=== PATIENT | male | born 2005 | race Caucasian/White ===

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

== ENCOUNTER 2024-06-16 12:03 | Emergency (ER) | payer BC, SELFPAY ==
[2024-06-16 12:47] VITALS: BP 132/88; PULSE 91; RESP 17; TEMP 36.6; O2SAT 99; BMI 23.7
--- NOTE | 2024-06-16 12:48 | ED.GENADULT ---
HPI - General Adult General Chief complaint: Headache Stated complaint: Ear pain/Headache/HBP Time Seen by Provider: 06/16/24 18:18 History of Present Illness ED Provider: Kosta HARRIS narrative: The patient is a 19-year-old male who is generally in good health and on no medications. He has been feeling unwell for about 3 weeks. He says that at the end of April he was in [place] and went on a lot of rides. He returned to [place] on May 21. At that time he was feeling fine. The next day on May 22 he had some alcohol. The next day he thought he might be hung over. He did not feel very well. The following day on Sunday evening he felt dizzy and felt like he had to stay in bed. He also felt very anxious. He says that since then, over the intervening 3 weeks, he has continued to feel quite unwell. He has spent a lot of time in bed. He has eaten less than usual. He thinks he has lost at least 10 lb. He has been sleeping poorly. He has been eating poorly. He has had intermittent nausea. He has had a couple of episodes of vomiting. He has had no significant abdominal pain. He has had no fevers or urinary symptoms. He says that his head ?feels weird. ? He says he does not really have a headache. He feels dizzy with head movements. Last week he went to an urgent care clinic but was given no particular diagnosis. Today he felt that his symptoms were worse. He told his father who brought him to the emergency room. He says that he only feels well when he is crying. Related Data Previous Rx's ?Medication ?Instructions ?Recorded ondansetron 4 mg disintegrating 4 mg PO Q6H PRN nausea and 06/16/24 tablet vomiting #10 tabs Allergies Allergy/AdvReac Type Severity Reaction Status Date / Time No Known Allergies Allergy Verified 06/16/24 12:49 Review of Systems Review of Systems: Yes all other systems are reviewed and are negative [facility] Social History Social History Advance Directives: No Advance Directives Information Provided: No Do you have a plan to hurt others: No Plan Physical Exam ED Vital Signs: Vital Signs - 24 hr 06/16/24 12:47 06/16/24 19:18 06/16/24 20:11 Temperature 97.8 F 98.4 F 98.9 F Pulse Rate 91 111 H Respiratory Rate 17 16 Blood Pressure 132/88 125/76 Pulse Oximetry 99 100 Oxygen Delivery Method Room Air Room Air 06/16/24 20:51 Temperature 98.9 F Pulse Rate 0 L Respiratory Rate 18 Blood Pressure 00/00 L Pulse Oximetry 95 Oxygen Delivery Method Room Air BMI result Body Mass Index 23.7 Const Other: The patient is a 19-year-old male who looks as though he is ordinarily slim and healthy. He was awake and alert. His father was sitting next to him on the stretcher and the patient had his arms around his father and was intermittently tearful. He did not seem in obvious pain or respiratory distress. HENMT Other: The face is symmetrical. No facial swelling or obvious abnormality to inspection. Mucous membranes are moist. Posterior pharynx is normal. Tympanic membranes are normal bilaterally. Eyes Other: No nystagmus General: appearance normal, both eyes and all related structures Alignment and Position: alignment normal Eyelids: Yes eyelids normal Conjunctivae: conjunctivae normal Sclerae: sclerae normal Pupils: Equal, round and reactive pupils present EOM: EOMs intact bilaterally Neck Other: No cervical adenopathy, neck is supple. Resp Effort & Inspection: normal respiratory effort Auscultation: clear to auscultation bilaterally Cardio Rate: regular rate Rhythm: regular rhythm Heart sounds: S1 normal heart sound present and S2 normal heart sound present GI Other: Abdomen is soft and nontender, no masses. Skin Other: Skin is dry and unremarkable. No rash. Neuro Other: The patient is awake and alert. He seemed anxious and was intermittently tearful. However he did not seem confused or encephalopathic. Pupils were round equal, extraocular movements were intact, no nystagmus. Face is symmetrical. Speech is clear. He moves his extremities normally and appropriately. Finger-nose is normal. Heel-grimaldo is normal. Gait is normal. He seems neurologically intact. His neck is supple. Cranial nerves: Yes Equal, round and reactive pupils present Extrem Other: No peripheral edema. Extremities unremarkable. Course Course Course Narrative: RME, this is a rapid medical exam performed by Pablo Staples please refer to primary provider for complete H&P- 19-year-old male presents for evaluation of dizziness, ear pain, headache and elevated blood pressure. He also reports a 20 lb weight loss in the last few weeks. Plan for basic labs Medications Administered Discontinued Medications Generic Name Dose Route Start Last Admin Trade Name Graciela PRN Reason Stop Dose Admin Diphenhydramine HCl 25 mg 06/16/24 18:40 06/16/24 19:06 Diphenhydramine Hcl 50 Mg/Ml Vial IVPUSH 06/16/24 18:41 25 mg ONCE ONE Administration Sodium Chloride 1,000 mls @ 999 mls/hr 06/16/24 18:45 06/16/24 19:52 Ns IV 06/16/24 19:45 Infused .Q1H1M SHIMON Infusion Ketorolac Tromethamine 10 mg 06/16/24 18:40 06/16/24 19:05 Ketorolac Tromethamine 15 Mg/Ml Vial IVPUSH 06/16/24 18:41 10 mg ONCE ONE Administration Loratadine 10 mg 06/16/24 20:18 06/16/24 20:48 Loratadine 10 Mg Tablet PO 06/16/24 20:19 Not Given ONCE ONE Metoclopramide HCl 10 mg 06/16/24 18:40 06/16/24 19:07 Metoclopramide Hcl 10 Mg/2 Ml Vial IVPUSH 06/16/24 18:41 10 mg ONCE ONE Administration Medical Decision Making Medical Decision Making [facility] Narrative: The patient is a 19-year-old who does not have a significant past medical history who presents for evaluation of symptoms that has been bothering him for 3 weeks. He reports that the symptoms began 2 days after returning from a trip to [place]. His symptoms include a sense of head discomfort and dizziness. He describes eating poorly over the last 3 weeks and having intermittent nausea. He has had minimal vomiting. No abdominal pain. He says that his head feels strange but he does not have a definite continue his headache although sometimes he has had a sense of a pain behind his left eye. The patient does not have any significant findings on his neurological exam or on his physical exam generally. He seems to have a very anxious affect. His vital signs are unremarkable. His workup shows a normal white count of 6.6 with a normal differential. Normal hemoglobin. Normal platelets. His chemistries show a mildly elevated calcium at 10.6, an elevated total bilirubin of 1.3 (direct bilirubin normal at 0.4). Slightly elevated ALT at 45. Normal AST of 26. Mildly elevated alk phos of 130. Total protein slightly elevated 8.2. Albumin minimally elevated at 5.1. The patient had a CRP that was undetectable. My overall impression is that the patient has mild metabolic abnormalities are probably consistent with dehydration rather than a more concerning process. Given the absence of any focal neurological deficit in the absence of a significant headache I do not see an indication for neuroimaging. The patient was treated as if his symptoms might be migraine related. He was given IV fluids, IV ketorolac, metoclopramide, and diphenhydramine. He seemed to feel somewhat better. I think the patient may be discharged. He has previously been seen at [facility] [place] but has not been seen for awhile. He does not have any other primary care doctor. He is advised to contact [facility] [place] for a follow up appointment and to work on getting a new primary care doctor as well. He should return if worse. Lab Data 06/16/24 14:00 06/16/24 14:00 Labs: Lab Results 06/16/24 06/16/24 Range/Units 14:00 18:21 WBC 6.6 (4.8-10.8) X10*3/uL RBC 5.63 (4.60-5.80) X10*6/uL Hgb 17.0 (14.0-18.0) g/dl Hct 46.9 (42.0-52.0) % MCV 83.3 (80.0-98.0) fL MCH 30.2 (27.0-33.0) pg MCHC 36.2 H (31.0-36.0) g/dl RDW 11.8 (11.0-16.0) % Plt Count 233 (160-400) X10*3/uL MPV 10.1 (9.4-12.4) fL Immature Gran % (Auto) 0.2 (0.0-0.4) % Neut % (Auto) 71.6 (45-73) % Lymph % (Auto) 20.1 (20-40) % [place] % (Auto) 7.2 (2-11) % Eos % (Auto) 0.6 (0-4) % Baso % (Auto) 0.3 (0-2) % Lymph # (Auto) 1.3 (1.2-4.9) X10*3/uL [place] # (Auto) 0.5 (0.1-1.2) X10*3/uL Eos # (Auto) 0.0 (0.0-0.4) X10*3/uL Baso # (Auto) 0.0 (0.0-0.2) X10*3/uL Abs Immat Gran (auto) 0.01 (0.00-0.03) X10*3/uL Absolute Neuts (auto) 4.7 (2.0-8.3) x10*3/uL Absolute Nucleated RBC 0.000 (0.0-0.012) X10*3/uL Nucleated RBC % (auto) 0.0 (0.0-0.2) /100WBC Sodium 140 (135-145) mmol/L Potassium 3.9 (3.3-5.1) mmol/L Chloride 102 (96-108) mmol/L Carbon Dioxide 26 (22-29) mmol/L Anion Gap 16 (12-20) BUN 9 (9-16) mg/dL Creatinine 1.11 (0.5-1.4) mg/dL Estim Creat Clear Calc 108.6 Estimated GFR > 60 Random Glucose 97 (60-115) mg/dL Calcium 10.6 H (8.4-10.2) mg/dL Magnesium 1.9 (1.6-2.6) mg/dL Total Bilirubin 1.3 H (0.0-1.0) mg/dL Direct Bilirubin 0.4 (0.0-0.5) mg/dL AST 26 (5-37) U/L ALT 45 H (0-40) U/L Alkaline Phosphatase 130 H (39-117) U/L C-Reactive Protein < 0.04 (< or = 0.50) mg/dL Total Protein 8.2 H (6.5-8.0) g/dL Albumin 5.1 H (3.5-5.0) g/dL Lipase 18 (8-78) U/L Urine Color Yellow Urine Appearance Clear Urine pH 6.0 (5.0-9.0) Ur Specific [place] <= 1.005 (1.005-1.025) Urine Protein Negative (Neg-Trace) mg/dL Urine Glucose (UA) Negative (Negative) mg/dL Urine Ketones 40 (Negative) mg/dL Urine Blood Negative (Negative) Urine Nitrite Negative (Negative) Ur Leukocyte Esterase Negative (Negative) Urine RBC 0-2 (0-2) /HPF Urine WBC 0-5 (0-5) /HPF Ur Squamous Epith Cells 0-2 (0-2) /HPF Urine Bacteria None Seen (None Seen) Hyaline Casts 0-2 (0-2) /LPF Influenza Type A (PCR) NEGATIVE (Negative) Influenza Type B (PCR) NEGATIVE (Negative) RSV RNA Qual (PCR) NEGATIVE (Negative) SARS-CoV-2 RNA (RT-PCR) NEGATIVE (Negative) Discharge Plan Discharge Clinical Impression: Dizziness, Pressure in head, Dehydration Patient Disposition: Home, Self-Care Additional Instructions: I think your testing in the emergency room today is reassuring. It is possible you could have some kind of a migraine component to your symptoms. Please rest and take it easy tonight. My hope is you will get some decent sleep tonight after the medications you received here. My hope is that after a decent night of sleep you might be feeling better tomorrow. In case you have recurrent nausea I have sent a prescription for a medication called ondansetron which you may use as needed for nausea. Use ibuprofen for discomfort. Please contact [facility] to see if they might be willing to see you in a follow up appointment. Please work on getting a new primary care doctor as well. If you are significantly worse please return to the emergency department. Prescriptions: New ondansetron 4 mg tablet,disintegrating 4 mg PO Q6H PRN (Reason: nausea and vomiting) Qty: 10 0RF Referrals: [facility] [Provider Group] (dizziness) Stand Alone Forms: Work/School Release Interventions: ED Discharge Assessment Last Done: 06/16/24 20:51 Discharge Date/Time: 06/16/24 20:52 Print Language: Filipino
[2024-06-16 14:06] LABS: MANUAL DIFF FLAG NO
[2024-06-16 14:08] LABS: Basophils Percent Auto 0.3 % (0-2); Eosinophils Percent Auto 0.6 % (0-4); Hematocrit 46.9 % (42.0-52.0); Imm Gran Abs Auto 0.01 X10*3/uL (0.00-0.03); Imm Gran Pct Auto 0.2 % (0.0-0.4); Lymphocytes Absolute Auto 1.3 X10*3/uL (1.2-4.9); Lymphocytes Percent Auto 20.1 % (20-40); Mean Corpuscular HGB Conc 36.2 g/dl (31.0-36.0); Mean Corpuscular Hemoglobin 30.2 pg (27.0-33.0); Mean Corpuscular Volume 83.3 fL (80.0-98.0); Mean Platelet Volume 10.1 fL (9.4-12.4); Monocytes Absolute Auto 0.5 X10*3/uL (0.1-1.2); Monocytes Percent Auto 7.2 % (2-11); Neutrophils Absolute Auto 4.7 x10*3/uL (2.0-8.3); Neutrophils Percent Auto 71.6 % (45-73); Platelet Count 233 X10*3/uL (160-400); Red Blood Count 5.63 X10*6/uL (4.60-5.80); Red Cell Distribution Width 11.8 % (11.0-16.0); White Blood Count 6.6 X10*3/uL (4.8-10.8)
[2024-06-16 14:20] LABS: Alanine Aminotransferase 45 U/L (0-40); Albumin Level 5.1 g/dL (3.5-5.0); Alkaline Phosphatase 130 U/L (39-117); Anion Gap 16 (12-20); Aspartate Amino Transferase 26 U/L (5-37); Bilirubin Total 1.3 mg/dL (0.0-1.0); Blood Urea Nitrogen 9 mg/dL (9-16); Calcium 10.6 mg/dL (8.4-10.2); Carbon Dioxide 26 mmol/L (22-29); Chloride 102 mmol/L (96-108); Creatinine Clr Calc Pharmacy 108.6; Estimated Glomerular Filt Rate > 60; Glucose Random 97 mg/dL (60-115); Lipase 18 U/L (8-78); Magnesium 1.9 mg/dL (1.6-2.6); Potassium 3.9 mmol/L (3.3-5.1); Sodium 140 mmol/L (135-145); Total Protein 8.2 g/dL (6.5-8.0)
[2024-06-16 15:19] LABS: Influenza A PCR NEGATIVE (Negative); Influenza B PCR NEGATIVE (Negative); Resp Syncy Virus RNA Qual PCR NEGATIVE (Negative); SARS COV2 PCR INHOUSE NEGATIVE (Negative)
[2024-06-16 18:30] LABS: Appearance Urine Clear; Color Urine Yellow; Glucose Urine UA Negative (Negative); Leukocyte Esterase Urine Negative (Negative); Nitrite Urine Negative (Negative); Specific Gravity - Urine <= 1.005 (1.005-1.025); Urine Blood Negative (Negative); Urine Ketones 40 mg/dL (Negative); Urine Protein Negative (Neg-Trace)
[2024-06-16 18:35] LABS: Bacteria Urine None Seen (None Seen); Hyaline Casts Urine 0-2 /LPF (0-2); RBC Urine 0-2 /HPF (0-2); Squamous Epithelial Cell Urine 0-2 /HPF (0-2); WBC Urine 0-5 /HPF (0-5)
[2024-06-16 18:37] LABS: Bilirubin Direct 0.4 mg/dL (0.0-0.5)
--- NOTE | 2024-06-16 18:47 | ECG_ITS ---
Test Reason : DIZZYNESS Blood Pressure : / mmHG Vent. Rate : 104 BPM Atrial Rate : 104 BPM P-R Int : 172 ms QRS Dur : 084 ms QT Int : 344 ms P-R-T Axes : 054 -42 018 degrees QTc Int : 452 ms Sinus tachycardia Left axis deviation Nonspecific T wave abnormality Abnormal ECG When compared with ECG of 2003 07:41, PREVIOUS ECG IS PRESENT Referred By: Rio Brambila Electronically Signed By:ATA MORALES
[2024-06-16] MEDS: 0.9 % Sodium Chloride 1,000 ML 999 ML IV (18:52)
[2024-06-16 18:54] LABS: C Reactive Protein < 0.04 mg/dL (< or = 0.50)
[2024-06-16] MEDS: Ketorolac Tromethamine 15 MG/ML VIAL 10 MG IVPUSH (19:05)
[2024-06-16] MEDS: diphenhydrAMINE HCL 50 MG/ML VIAL 25 MG IVPUSH (19:06)
[2024-06-16] MEDS: Metoclopramide HCl 10 MG/2 ML VIAL IVPUSH (19:07)
[2024-06-16 19:18] VITALS: BP 125/76; PULSE 111; RESP 16; TEMP 36.9; O2SAT 100
[2024-06-16 20:11] VITALS: TEMP 37.2
[2024-06-16 20:51] VITALS: BP 00/00; PULSE 0; RESP 18; TEMP 37.2; O2SAT 95
== END 2024-06-16 20:52 | disposition home or self-care (01) ==
PROVIDERS: Physician Assistant; Emergency Provider Emergency Medicine
DX: R42 Dizziness and giddiness (principal); R51.9 Headache, unspecified; E86.0 Dehydration; F41.9 Anxiety disorder, unspecified; Z03.818 Encounter for observation for suspected exposure to other biological agents ruled out
CPT/HCPCS: 0241U; 80053; 81001; 82248; 83690; 83735; 85025; 86140; 93005; 96361; 96374; 96375; 99284; J1200; J1885; J2765